=== PATIENT | male | born 1940 | race Caucasian/White ===

== ENCOUNTER 2018-03-09 12:51 | Outpatient (CLI) | payer MEDICARE ==
[2018-03-09] MEDS ORDERED: BARIUM SULFATE 340 ML SUSP.RECON***PROCEDURE AREA ONLY**DONT ENTER PO ONE ×2 (13:16→13:59)
== END 2018-03-09 23:59 | disposition home or self-care (01) ==
LOC: RAD 12:51
PROVIDERS: ATTEND Otolaryngology
DX: R13.14 Dysphagia, pharyngoesophageal phase (principal); J38.2 Nodules of vocal cords; K21.9 Gastro-esophageal reflux disease without esophagitis
CPT/HCPCS: 74220; 74230